=== PATIENT | male | born 1955 | race Two or more races ===

== ENCOUNTER 2024-09-02 14:08 | Emergency (ER) | payer OTHER ==
[~2024-09-02] VITALS: Ht 177.8 cm; Wt 80.7 kg
[2024-09-02] MEDS ORDERED: TAMS0.4C PO (14:38)
[2024-09-02 14:39] VITALS: BP 152/78; O2SAT 100
[2024-09-02] MEDS ORDERED: LIPITOR40 M1 PO (14:39)
[2024-09-02] MEDS ORDERED: KETOROLAC TROMETHAMINE 15 MG VIAL IM STA (15:33)
[2024-09-02] MEDS ORDERED: KETOROLAC TROMETHAMINE 30 MG VIAL ONE (15:41)
== END 2024-09-02 17:50 | disposition home or self-care (01) ==
LOC: ER 14:48
DX: S70.01XA Contusion of right hip, initial encounter (principal); W19.XXXA Unspecified fall, initial encounter; Y93.89 Activity, other specified; Y92.89 Other specified places as the place of occurrence of the external cause; Y99.9 Unspecified external cause status
CPT/HCPCS: 73502; 96372; 99283; J1885